=== PATIENT | female | born 1950 | race Hispanic/Latino ===

== ENCOUNTER → 2017-11-24 | Outpatient (CLI) | payer MEDICARE ==
[~2017-11-24] MED LIST: ALEN70TA47 PO; BUSP7.5T7 PO; CALC-21 PO; ESOM20CA39 PO; GLIP5TAB11 PO; LISI-617 PO; METF10004 PO
== END | disposition home or self-care (01) ==
LOC: SHCH 08:55
PROVIDERS: ATTEND Internal Medicine Cardiovascular Disease
DX: I42.9 Cardiomyopathy, unspecified (principal)
CPT/HCPCS: 93306

== ENCOUNTER 2018-06-25 15:53 | Emergency (ER) | payer MEDICARE ==
[~2018-06-25 15:53] MED LIST changes: +METF-446 PO; -METF10004 PO
[2018-06-25] MEDS ORDERED: ACETAMINOPHEN 325 MG TAB ONE (16:46)
== END 2018-06-25 16:55 | disposition home or self-care (01) ==
LOC: EDH 15:53
DX: S50.312A Abrasion of left elbow, initial encounter (principal); E11.9 Type 2 diabetes mellitus without complications; I10 Essential (primary) hypertension; M81.0 Age-related osteoporosis without current pathological fracture; Z98.890 Other specified postprocedural states; W10.1XXA Fall (on)(from) sidewalk curb, initial encounter; Y93.01 Activity, walking, marching and hiking; Y92.89 Other specified places as the place of occurrence of the external cause; Y99.8 Other external cause status
CPT/HCPCS: 73070

== ENCOUNTER 2018-10-24 22:11 | Emergency (ER) | payer MEDICARE ==
[~2018-10-24 22:11] MED LIST changes: +ALEN70TA10 PO; -ALEN70TA47 PO
[2018-10-24 22:44] LABS: BASOPHILS % (AUTO) 0.8 % (0.0-5.0); EOSINOPHILS % (AUTO) 5.3 % (0.0-8.0); HEMATOCRIT 37.2 % (36-48); LYMPHOCYTES % (AUTO) 43.7 % (21.0-51.0); MEAN CORPUSCULAR HEMOGLOBIN 32.6 pg (27.0-33.0); MEAN CORPUSCULAR HGB CONC 33.4 g/dL (32.0-36.0); MEAN CORPUSCULAR VOLUME 97.6 fL (79-99); MONOCYTES % (AUTO) 10.8 % (3.0-13.0); NEUTROPHILS % (AUTO) 39.4 % (40.0-77.0); NUCLEATED RED BLOOD CELLS 0.1 % (0.0-0.19); PLATELET COUNT (AUTO) 104 K/uL (130-400); RED BLOOD CELL COUNT(AUTO) 3.82 MIL/uL (4.00-5.50); WHITE BLOOD COUNT (AUTO) 6.3 K/uL (4.8-10.8)
[2018-10-24 22:52] LABS: POTASSIUM 4.2 mmol/L (3.5-5.1)
[2018-10-24] MEDS ORDERED: SODIUM CHLORIDE 0.9% 1000ML 1,000 ML IV ONE (22:54)
[2018-10-24 22:56] LABS: ALBUMIN 3.2 g/dL (3.5-5.0); BILIRUBIN,TOTAL 0.4 mg/dL (0.2-1.0); TOTAL PROTEIN, SERUM 7.5 g/dL (6.0-8.3)
[2018-10-24 23:06] LABS: INR 1.05 (0.85-1.15); PARTIAL THROMBOPLASTIN TIME 27.3 SEC (26.3-35.5)
== END 2018-10-25 01:57 | disposition home or self-care (01) ==
LOC: EDH 22:11
DX: E86.9 Volume depletion, unspecified (principal); E11.65 Type 2 diabetes mellitus with hyperglycemia; M81.0 Age-related osteoporosis without current pathological fracture; Z98.890 Other specified postprocedural states
CPT/HCPCS: 36415; 71045; 80053; 82550; 82948; 83605; 83690; 84484; 85025; 85610; 85730; 93005; 96360; 96361; 99284; J7030

== ENCOUNTER → 2018-12-18 | Outpatient (CLI) | payer MEDICARE | END | disposition home or self-care (01) | LOC: LAB 07:56 | PROVIDERS: ATTEND Family Medicine | DX: Z79.899 Other long term (current) drug therapy (principal) | CPT/HCPCS: 93005 ==

== ENCOUNTER 2019-04-06 14:08 | Emergency (ER) | payer MEDICARE | END 2019-04-06 17:03 | disposition home or self-care (01) | LOC: EDH 14:08 | DX: S01.111A Laceration without foreign body of right eyelid and periocular area, initial encounter (principal); E11.9 Type 2 diabetes mellitus without complications; I10 Essential (primary) hypertension; M81.0 Age-related osteoporosis without current pathological fracture; W18.39XA Other fall on same level, initial encounter; Y93.01 Activity, walking, marching and hiking; Y92.89 Other specified places as the place of occurrence of the external cause; Y99.8 Other external cause status | CPT/HCPCS: 12011; 70450; 72125 ==

== ENCOUNTER 2020-08-19 08:12 | Inpatient (IN) | payer OTHER, MEDICARE ==
[~2020-08-19] VITALS: Ht 157.5 cm; Wt 72.0 kg
[~2020-08-19 08:12] MED LIST changes: -ALEN70TA10 PO; +BUSP5TAB3 PO; -BUSP7.5T7 PO; -CALC-21 PO; +CHOL200026 PO; +CYAN250010 PO; -ESOM20CA39 PO; +ESOM40CA54 PO; +FLUT15.845 NS; +FOLI0.8C PO; +GLIM4TAB36 PO; -GLIP5TAB11 PO; +INSLAN SQ; +INSU100V SQ; -LISI-617 PO; +LISI5TAB21 PO; +LORA10TA7 PO; +METO-408 PO; +MONT-39 PO; +SERT25TA PO
[2020-08-19] MEDS ORDERED: MORPHINE 2 MG SYG ONE (08:21)
[2020-08-19 08:55] LABS: BASOPHILS % (AUTO) 0.6 % (0.0-5.0); EOSINOPHILS % (AUTO) 8.1 % (0.0-8.0); LYMPHOCYTES % (AUTO) 37.3 % (21.0-51.0); MEAN CORPUSCULAR HEMOGLOBIN 31.2 pg (27.0-33.0); MEAN CORPUSCULAR VOLUME 94.6 fL (79-99); MONOCYTES % (AUTO) 8.7 % (3.0-13.0); NEUTROPHILS % (AUTO) 44.7 % (40.0-77.0); PLATELET COUNT (AUTO) 86 K/uL (130-400); RED BLOOD CELL COUNT(AUTO) 3.17 MIL/uL (4.00-5.50); RED CELL DISTRIBUTION WIDTH 15.1 % (11.0-15.5); WHITE BLOOD COUNT (AUTO) 6.9 K/uL (4.8-10.8)
[2020-08-19 08:58] LABS: CREATININE 1.1 mg/dL (0.5-1.5); POTASSIUM 3.5 mmol/L (3.5-5.1)
[2020-08-19 09:02] LABS: INR 1.2 (0.85-1.15); PROTHROMBIN TIME 12.9 SEC (9.6-11.6)
[2020-08-19 09:03] LABS: PARTIAL THROMBOPLASTIN TIME 28.4 SEC (26.3-35.5)
[2020-08-19 09:05] LABS: ALBUMIN 2.8 g/dL (3.5-5.0); BILIRUBIN,TOTAL 0.6 mg/dL (0.2-1.0); TOTAL PROTEIN, SERUM 7.3 g/dL (6.0-8.3)
[2020-08-19 10:04] LABS: APPEARANCE,URINE Clear (CLEAR); BILIRUBIN,URINE Negative (NEGATIVE); COLOR,URINE Yellow (YELLOW); GLUCOSE, URINE (UA) Negative (NEGATIVE); KETONES,URINE Negative (NEGATIVE); LEUKOCYTE ESTERASE ,URINE Negative (NEGATIVE); NITRATE,URINE Negative (NEGATIVE); OCCULT BLOOD,URINE Moderate (NEGATIVE); PH,URINE 6.5 (5.0-8.0); PROTEIN,URINE POS 1+ mg/dL (NEGATIVE)
[2020-08-19 10:16] LABS: WBC,URINE 0-1 /HPF (0-1)
[2020-08-19 10:17] LABS: BACTERIA,URINE Rare /HPF (None Seen); SQUAMOUS EPITHELIAL CELL,UR None Seen /HPF (0-2)
[2020-08-19] MEDS ORDERED: GLUCAGON 1MG KIT 1 MG ML IM PRN (10:30)
[2020-08-19] MEDS ORDERED: ACETAMINOPHEN 325 MG TAB PO PRN (10:30)
[2020-08-19] MEDS ORDERED: LABETALOL 20MG VIAL IV PRN (10:30)
[2020-08-19] MEDS: ENOXAPARIN SODIUM 30 MG/0.3 ML SQ SCH ×2 (10:30→20:12)
[2020-08-19] MEDS ORDERED: ONDANSETRON 4MG INJ IVP PRN (10:30)
[2020-08-19] MEDS ORDERED: POTASSIUM CHLORIDE 20MEQ/100ML 100 ML IV PRN (10:30)
[2020-08-19] MEDS ORDERED: ACETAMINOPHEN 650 MG SUPPOSITORY RC PRN (10:30)
[2020-08-19] MEDS ORDERED: DEXTROSE 50%-WATER 50 ML DISP.SYRIN IV PRN (10:30)
[2020-08-19] MEDS: FAMOTIDINE 20MG VIAL IV SCH ×2 (10:30→20:12)
[2020-08-19] MEDS ORDERED: MAGNESIUM 2GM PREMIX 50ML 50 ML IV PRN (10:30)
[2020-08-19] MEDS ORDERED: LIDOCAINE HCL-MPF 1% 2ML VIAL IV PRN (10:30)
[2020-08-19] MEDS: 0.9%NACL 1000ML 1,000 ML IV SCH (10:30)
[2020-08-19 11:50] VITALS: BP 136/67
[2020-08-19] MEDS: INSULIN HUMULIN R 100 UNIT/ML 3ML SQ SCH ×2 (12:00→17:12)
[2020-08-19 16:00] VITALS: BP 127/55
[2020-08-19] MEDS: POTASSIUM CHLORIDE 20MEQ/100ML 100 ML IV PRN (17:03)
[2020-08-19] MEDS: LIDOCAINE HCL-MPF 1% 2ML VIAL IV PRN (17:03)
[2020-08-19 19:46] VITALS: BP 144/42
[2020-08-19] MEDS ORDERED: INSU100I24 SQ (19:54)
[2020-08-19] MEDS ORDERED: ALEN70TA80 PO (19:54)
[2020-08-19] MEDS ORDERED: INSU200I SQ (19:54)
[2020-08-19] MEDS ORDERED: ASPI-1197 PO (19:54)
[2020-08-19] MEDS ORDERED: PIOG15TA66 PO (19:54)
[2020-08-19] MEDS ORDERED: ROSU20TA31 PO (19:54)
[2020-08-19] MEDS: MORPHINE 2 MG SYG IVP PRN (20:13)
[2020-08-19 23:44] VITALS: BP 126/45
[2020-08-20] VITALS (24 sets, daily range): BP systolic 101–145; BP diastolic 36–62
[2020-08-20] MEDS: 0.9%NACL 1000ML 1,000 ML IV SCH ×2 (02:51→17:39)
[2020-08-20] MEDS: INSULIN HUMULIN R 100 UNIT/ML 3ML SQ SCH ×4 (06:00→17:39)
[2020-08-20 06:20] LABS: HEMATOCRIT 23.8 % (36-48); MEAN CORPUSCULAR HEMOGLOBIN 31.1 pg (27.0-33.0); MEAN CORPUSCULAR HGB CONC 32.8 g/dL (32.0-36.0); MEAN CORPUSCULAR VOLUME 94.8 fL (79-99); RED BLOOD CELL COUNT(AUTO) 2.51 MIL/uL (4.00-5.50); RED CELL DISTRIBUTION WIDTH 15.4 % (11.0-15.5)
[2020-08-20 06:37] LABS: MAGNESIUM 1.3 mg/dL (1.80-2.40); POTASSIUM 3.9 mmol/L (3.5-5.1)
[2020-08-20 06:41] LABS: HEMOGLOBIN A1C 7.2 % (4.0-6.0)
[2020-08-20] MEDS: FAMOTIDINE 20MG VIAL IV SCH ×2 (09:36→20:25)
[2020-08-20] MEDS ORDERED: PROPOFOL 10 MG/ML 20ML VIAL IV ONE (11:49)
[2020-08-20] MEDS ORDERED: ROPIVACAINE 0.5% 5MG/ML 30ML IJ ONE (11:50)
[2020-08-20] MEDS ORDERED: FENTANYL CITRATE PF 50 MCG/1 ML 2ML VIAL ONE ×2 (12:06→13:04)
[2020-08-20] MEDS: TRANEXAMIC ACID 1000MG/10ML ONE ×2 (12:25→13:25)
[2020-08-20] MEDS ORDERED: EPHEDRINE SULFATE 50 MG/ML AMPULE ONE (13:10)
[2020-08-20] MEDS ORDERED: GLYCOPYRROLATE 1 MG/5 ML SYRINGE ONE (13:13)
[2020-08-20] MEDS ORDERED: NEOSTIGMINE 5MG/5ML SYR IV ONE (13:13)
[2020-08-20] MEDS ORDERED: DEXAMETHASONE SOD PHOSPHATE 10MG/ML 1ML VIAL ONE (13:14)
[2020-08-20] MEDS ORDERED: LIDOCAINE 2%-EPI 1:200,000 20 ML VIAL IJ ONE (13:54)
[2020-08-20] MEDS ORDERED: CEFAZOLIN SODIUM 1 GM VIAL ONE (14:17)
[2020-08-20] MEDS ORDERED: IRON SUCROSE COMPLEX 400 MG in 0.9%NACL 50ML 50 ML IV SCH (14:30)
[2020-08-20] MEDS ORDERED: COMPOUND IV MISC 1 EACH IVSOLN MISC PRN (15:45)
[2020-08-20] MEDS ORDERED: EPOETIN ALFA 10,000 UNIT/ML VIAL SQ SCH (16:00)
[2020-08-21] VITALS (7 sets, daily range): BP systolic 115–131; BP diastolic 45–50
[2020-08-21] MEDS: MORPHINE 2 MG SYG IVP PRN (00:30)
[2020-08-21] MEDS: 0.9%NACL 1000ML 1,000 ML IV SCH ×3 (02:41→20:53)
[2020-08-21] MEDS ORDERED: INSULIN HUMULIN R 100 UNIT/ML 3ML ONE (05:50)
[2020-08-21] MEDS ORDERED: ASCORBIC ACID 500 MG TAB ONE (05:51)
[2020-08-21] MEDS: ASCORBIC ACID 500 MG TAB PO SCH (05:58)
[2020-08-21] MEDS: INSULIN HUMULIN R 100 UNIT/ML 3ML SQ SCH ×4 (06:00→20:55)
[2020-08-21 06:22] LABS: CREATININE 1.3 mg/dL (0.5-1.5); POTASSIUM 4.2 mmol/L (3.5-5.1)
[2020-08-21 07:09] LABS: MEAN CORPUSCULAR HEMOGLOBIN 31.3 pg (27.0-33.0); MEAN CORPUSCULAR HGB CONC 31.6 g/dL (32.0-36.0); MEAN CORPUSCULAR VOLUME 98.9 fL (79-99); PLATELET COUNT (AUTO) 89 K/uL (130-400); RED BLOOD CELL COUNT(AUTO) 1.76 MIL/uL (4.00-5.50); RED CELL DISTRIBUTION WIDTH 16.1 % (11.0-15.5); WHITE BLOOD COUNT (AUTO) 15.4 K/uL (4.8-10.8)
[2020-08-21 07:24] LABS: HEMATOCRIT 17.4 % (36-48)
[2020-08-21] MEDS: FERROUS SULFATE 325 MG TABLET.DR PO SCH ×3 (08:15→20:53)
[2020-08-21] MEDS: FAMOTIDINE 20MG VIAL IV SCH ×2 (08:15→20:53)
[2020-08-21] MEDS: METOPROLOL SUCCINATE 50 MG TAB.SR.24H PO SCH (08:16)
[2020-08-21] MEDS: EPOETIN ALFA-EPBX (NON-ESRD) 10,000 UNIT/ML VIAL IV SCH (11:55)
[2020-08-21 13:04] LABS: % IRON SATURATION 101.1 % (22-44)
[2020-08-21] MEDS ORDERED: LISINOPRIL 5 MG TABLET ONE (20:15)
[2020-08-21] MEDS: LISINOPRIL 5 MG TABLET PO SCH (20:53)
[2020-08-22 03:56] VITALS: BP 121/40
[2020-08-22] MEDS: INSULIN HUMULIN R 100 UNIT/ML 3ML SQ SCH ×4 (05:16→21:09)
[2020-08-22] MEDS: ASCORBIC ACID 500 MG TAB PO SCH (05:20)
[2020-08-22 07:35] VITALS: BP 125/47
[2020-08-22 07:53] LABS: MEAN CORPUSCULAR HEMOGLOBIN 31.8 pg (27.0-33.0); MEAN CORPUSCULAR HGB CONC 31.8 g/dL (32.0-36.0); NUCLEATED RED BLOOD CELLS 0.6 % (0.0-0.19); RED BLOOD CELL COUNT(AUTO) 1.57 MIL/uL (4.00-5.50); RED CELL DISTRIBUTION WIDTH 16.9 % (11.0-15.5); WHITE BLOOD COUNT (AUTO) 12.3 K/uL (4.8-10.8)
[2020-08-22 08:00] LABS: HEMATOCRIT 15.7 % (36-48)
[2020-08-22] MEDS: 0.9%NACL 1000ML 1,000 ML IV SCH ×2 (08:30→18:30)
[2020-08-22] MEDS: MULTIVITAMINS W-IRON 50 ML DROPS PO SCH (09:00)
[2020-08-22] MEDS: METOPROLOL SUCCINATE 50 MG TAB.SR.24H PO SCH (11:18)
[2020-08-22] MEDS: FOLIC ACID 1 MG TABLET PO SCH (11:18)
[2020-08-22] MEDS: CYANOCOBALAMIN (VITAMIN B-12) 1,000 MCG TABLET PO SCH (11:18)
[2020-08-22] MEDS: FAMOTIDINE 20MG VIAL IV SCH ×2 (11:19→21:07)
[2020-08-22] MEDS: EPOETIN ALFA-EPBX (NON-ESRD) 10,000 UNIT/ML VIAL IV SCH (11:20)
[2020-08-22] MEDS: FERROUS SULFATE 325 MG TABLET.DR PO SCH ×3 (11:21→21:07)
[2020-08-22 11:26] VITALS: BP 122/51
[2020-08-22 16:24] VITALS: BP 124/44
[2020-08-22] MEDS: MORPHINE 2 MG SYG IVP PRN (16:27)
[2020-08-22 20:00] VITALS: BP 116/41
[2020-08-22] MEDS: LISINOPRIL 5 MG TABLET PO SCH (21:07)
[2020-08-22] MEDS: INSULIN GLARGINE 100 UNITS/ML 10 ML VIAL SQ SCH (21:10)
[2020-08-22 23:39] VITALS: BP 118/72
[2020-08-23] MEDS: 0.9%NACL 1000ML 1,000 ML IV SCH ×2 (03:34→17:52)
[2020-08-23 04:00] VITALS: BP 119/63
[2020-08-23] MEDS: INSULIN HUMULIN R 100 UNIT/ML 3ML SQ SCH ×4 (05:28→20:59)
[2020-08-23] MEDS: ASCORBIC ACID 500 MG TAB PO SCH ×2 (05:28→19:08)
[2020-08-23 05:41] LABS: MEAN CORPUSCULAR HEMOGLOBIN 31.6 pg (27.0-33.0); MEAN CORPUSCULAR HGB CONC 32.4 g/dL (32.0-36.0); MEAN CORPUSCULAR VOLUME 97.7 fL (79-99); NUCLEATED RED BLOOD CELLS 3.2 % (0.0-0.19); RED BLOOD CELL COUNT(AUTO) 1.77 MIL/uL (4.00-5.50); WHITE BLOOD COUNT (AUTO) 11.6 K/uL (4.8-10.8)
[2020-08-23 05:54] LABS: CREATININE 0.9 mg/dL (0.5-1.5); POTASSIUM 3.5 mmol/L (3.5-5.1)
[2020-08-23 06:06] LABS: HEMATOCRIT 17.3 % (36-48)
[2020-08-23 08:00] VITALS: BP 128/46
[2020-08-23] MEDS: EPOETIN ALFA-EPBX (NON-ESRD) 10,000 UNIT/ML VIAL IV SCH (08:42)
[2020-08-23] MEDS: FOLIC ACID 1 MG TABLET PO SCH (08:48)
[2020-08-23] MEDS: FERROUS SULFATE 325 MG TABLET.DR PO SCH ×3 (08:48→21:00)
[2020-08-23] MEDS: METOPROLOL SUCCINATE 50 MG TAB.SR.24H PO SCH (08:48)
[2020-08-23] MEDS: CYANOCOBALAMIN (VITAMIN B-12) 1,000 MCG TABLET PO SCH (08:48)
[2020-08-23] MEDS: FAMOTIDINE 20MG VIAL IV SCH ×2 (08:48→21:00)
[2020-08-23] MEDS: MULTIVITAMINS W-IRON 50 ML DROPS PO SCH (08:56)
[2020-08-23 09:13] LABS: HEPATITIS A ANTIBODY IGM Negative (Negative); HEPATITIS B CORE IGM Negative (Negative); HEPATITIS Bs ANTIGEN SCREEN P Negative (Negative)
[2020-08-23] MEDS ORDERED: LACTULOSE 20 GM/30 ML UDCUP ONE (11:02)
[2020-08-23 11:53] VITALS: BP 134/62
[2020-08-23 16:00] VITALS: BP 135/53
[2020-08-23 20:43] VITALS: BP 116/58
[2020-08-23] MEDS: INSULIN GLARGINE 100 UNITS/ML 10 ML VIAL SQ SCH (20:59)
[2020-08-23] MEDS: LACTULOSE 20 GM/30 ML UDCUP PO SCH (21:00)
[2020-08-23] MEDS: LISINOPRIL 5 MG TABLET PO SCH (21:00)
[2020-08-24 00:26] VITALS: BP 126/53
[2020-08-24] MEDS: 0.9%NACL 1000ML 1,000 ML IV SCH ×3 (00:30→21:12)
[2020-08-24 04:17] VITALS: BP 134/49
[2020-08-24] MEDS: INSULIN HUMULIN R 100 UNIT/ML 3ML SQ SCH ×4 (05:42→20:33)
[2020-08-24 08:00] VITALS: BP 135/56
[2020-08-24 08:24] LABS: MEAN CORPUSCULAR HEMOGLOBIN 32.6 pg (27.0-33.0); MEAN CORPUSCULAR HGB CONC 32.8 g/dL (32.0-36.0); MEAN CORPUSCULAR VOLUME 99.5 fL (79-99); NUCLEATED RED BLOOD CELLS 9.5 % (0.0-0.19); PLATELET COUNT (AUTO) 120 K/uL (130-400); RED BLOOD CELL COUNT(AUTO) 1.93 MIL/uL (4.00-5.50); WHITE BLOOD COUNT (AUTO) 11.4 K/uL (4.8-10.8)
[2020-08-24] MEDS: LACTULOSE 20 GM/30 ML UDCUP PO SCH ×2 (08:29→20:56)
[2020-08-24] MEDS: FOLIC ACID 1 MG TABLET PO SCH (08:30)
[2020-08-24] MEDS: METOPROLOL SUCCINATE 50 MG TAB.SR.24H PO SCH (08:30)
[2020-08-24] MEDS: FERROUS SULFATE 325 MG TABLET.DR PO SCH ×3 (08:30→20:57)
[2020-08-24] MEDS: FAMOTIDINE 20MG VIAL IV SCH ×2 (08:30→20:56)
[2020-08-24] MEDS: CYANOCOBALAMIN (VITAMIN B-12) 1,000 MCG TABLET PO SCH (08:30)
[2020-08-24] MEDS: EPOETIN ALFA-EPBX (NON-ESRD) 10,000 UNIT/ML VIAL IV SCH (08:33)
[2020-08-24] MEDS: MULTIVITAMINS W-IRON 50 ML DROPS PO SCH (08:35)
[2020-08-24 08:39] LABS: CREATININE 0.9 mg/dL (0.5-1.5); POTASSIUM 3.1 mmol/L (3.5-5.1)
[2020-08-24 08:55] LABS: HEMATOCRIT 19.2 % (36-48)
[2020-08-24 09:40] LABS: BAND NEUTROPHILS % (MANUAL) 1 % (0-2); EOSINOPHILS % (MANUAL) 5 % (1-6); LYMPHOCYTES % (MANUAL) 14 % (22-44); MAN.DIFF COMMENT-IMPRESSION MANUAL DIFFERENTIAL; MONOCYTES % (MANUAL) 7 % (2-9); SEGMENTED NEUTROPHILS % 73 % (40-70)
[2020-08-24 09:42] LABS: PLATELET MORPHOLOGY COMMENT SLIGHTLY DECREASED
[2020-08-24 12:00] VITALS: BP 146/71
[2020-08-24] MEDS: IRON SUCROSE COMPLEX 100 MG in 0.9%NACL 50ML 50 ML IV SCH (15:15)
[2020-08-24 16:00] VITALS: BP 129/67
[2020-08-24] MEDS: ASCORBIC ACID 500 MG TAB PO SCH (18:36)
[2020-08-24 20:52] VITALS: BP 127/46
[2020-08-24] MEDS: INSULIN GLARGINE 100 UNITS/ML 10 ML VIAL SQ SCH (20:54)
[2020-08-24] MEDS: LISINOPRIL 5 MG TABLET PO SCH (20:57)
[2020-08-24] MEDS: POTASSIUM CHLORIDE 10% ELIXIR 20 MEQ/15 ML UDCUP PO PRN ×2 (21:02→23:09)
[2020-08-24 23:30] LABS: APPEARANCE,URINE Cloudy (CLEAR); BILIRUBIN,URINE Negative (NEGATIVE); COLOR,URINE Yellow (YELLOW); GLUCOSE, URINE (UA) Negative (NEGATIVE); KETONES,URINE Negative (NEGATIVE); LEUKOCYTE ESTERASE ,URINE Large (NEGATIVE); NITRATE,URINE Positive (NEGATIVE); OCCULT BLOOD,URINE Moderate (NEGATIVE); PH,URINE 7.5 (5.0-8.0); PROTEIN,URINE Trace mg/dL (NEGATIVE); UROBILINOGEN,URINE 0.2 mg/dL (0.2-1.0)
[2020-08-24 23:54] LABS: BACTERIA,URINE Moderate /HPF (None Seen); MUCUS,URINE Moderate LPF (None Seen); SQUAMOUS EPITHELIAL CELL,UR Few /HPF (0-2); WBC,URINE 51-100 /HPF (0-1)
[2020-08-25] VITALS (7 sets, daily range): BP systolic 101–129; BP diastolic 38–65
[2020-08-25] MEDS: POTASSIUM CHLORIDE 10% ELIXIR 20 MEQ/15 ML UDCUP PO PRN ×5 (00:19→17:30)
[2020-08-25 04:56] LABS: BASOPHILS % (AUTO) 0.6 % (0.0-5.0); EOSINOPHILS % (AUTO) 5.9 % (0.0-8.0); LYMPHOCYTES % (AUTO) 21.2 % (21.0-51.0); MEAN CORPUSCULAR HEMOGLOBIN 32.6 pg (27.0-33.0); MEAN CORPUSCULAR HGB CONC 32.2 g/dL (32.0-36.0); MEAN CORPUSCULAR VOLUME 101.1 fL (79-99); NEUTROPHILS % (AUTO) 55.1 % (40.0-77.0); NUCLEATED RED BLOOD CELLS 19.1 % (0.0-0.19); PLATELET COUNT (AUTO) 130 K/uL (130-400); RED BLOOD CELL COUNT(AUTO) 1.75 MIL/uL (4.00-5.50); RED CELL DISTRIBUTION WIDTH 20.2 % (11.0-15.5)
[2020-08-25 05:02] LABS: HEMATOCRIT 17.7 % (36-48)
[2020-08-25 05:15] LABS: CREATININE 0.9 mg/dL (0.5-1.5); POTASSIUM 3.3 mmol/L (3.5-5.1)
[2020-08-25] MEDS: INSULIN HUMULIN R 100 UNIT/ML 3ML SQ SCH ×4 (05:50→20:24)
[2020-08-25] MEDS: 0.9%NACL 1000ML 1,000 ML IV SCH ×2 (06:30→16:34)
[2020-08-25] MEDS: IRON SUCROSE COMPLEX 100 MG in 0.9%NACL 50ML 50 ML IV SCH (09:00)
[2020-08-25] MEDS: MULTIVITAMINS W-IRON 50 ML DROPS PO SCH (09:00)
[2020-08-25] MEDS: LACTULOSE 20 GM/30 ML UDCUP PO SCH ×2 (09:00→21:10)
[2020-08-25] MEDS: FERROUS SULFATE 325 MG TABLET.DR PO SCH ×3 (09:52→21:11)
[2020-08-25] MEDS: FOLIC ACID 1 MG TABLET PO SCH (09:52)
[2020-08-25] MEDS: FAMOTIDINE 20MG VIAL IV SCH ×2 (09:52→21:10)
[2020-08-25] MEDS: CYANOCOBALAMIN (VITAMIN B-12) 1,000 MCG TABLET PO SCH (09:52)
[2020-08-25] MEDS: METOPROLOL SUCCINATE 50 MG TAB.SR.24H PO SCH (09:52)
[2020-08-25] MEDS: EPOETIN ALFA-EPBX (NON-ESRD) 10,000 UNIT/ML VIAL IV SCH (11:19)
[2020-08-25] MEDS: LISINOPRIL 5 MG TABLET PO SCH (21:11)
[2020-08-25] MEDS: INSULIN GLARGINE 100 UNITS/ML 10 ML VIAL SQ SCH (21:18)
[2020-08-26] MEDS: 0.9%NACL 1000ML 1,000 ML IV SCH ×3 (03:35→21:08)
[2020-08-26 05:20] VITALS: BP 143/61
[2020-08-26] MEDS: INSULIN HUMULIN R 100 UNIT/ML 3ML SQ SCH ×4 (05:54→21:06)
[2020-08-26] MEDS: ASCORBIC ACID 500 MG TAB PO SCH (06:01)
[2020-08-26 07:50] VITALS: BP 128/46
[2020-08-26] MEDS: MULTIVITAMINS W-IRON 50 ML DROPS PO SCH (09:00)
[2020-08-26] MEDS: FERROUS SULFATE 325 MG TABLET.DR PO SCH ×3 (09:58→20:55)
[2020-08-26] MEDS: METOPROLOL SUCCINATE 50 MG TAB.SR.24H PO SCH (09:59)
[2020-08-26] MEDS: LACTULOSE 20 GM/30 ML UDCUP PO SCH ×2 (09:59→20:55)
[2020-08-26] MEDS: CYANOCOBALAMIN (VITAMIN B-12) 1,000 MCG TABLET PO SCH (09:59)
[2020-08-26] MEDS: FOLIC ACID 1 MG TABLET PO SCH (09:59)
[2020-08-26] MEDS: FAMOTIDINE 20MG VIAL IV SCH ×2 (09:59→20:55)
[2020-08-26] MEDS: EPOETIN ALFA-EPBX (NON-ESRD) 10,000 UNIT/ML VIAL IV SCH (09:59)
[2020-08-26 11:10] VITALS: BP 110/42
[2020-08-26 20:03] VITALS: BP 118/45
[2020-08-26] MEDS: LISINOPRIL 5 MG TABLET PO SCH (20:56)
[2020-08-26] MEDS: INSULIN GLARGINE 100 UNITS/ML 10 ML VIAL SQ SCH (21:07)
[2020-08-27] VITALS (7 sets, daily range): BP systolic 94–146; BP diastolic 38–69
[2020-08-27] MEDS: INSULIN HUMULIN R 100 UNIT/ML 3ML SQ SCH ×4 (05:49→22:07)
[2020-08-27] MEDS: ASCORBIC ACID 500 MG TAB PO SCH (05:59)
[2020-08-27] MEDS: LACTULOSE 20 GM/30 ML UDCUP PO SCH (09:00)
[2020-08-27] MEDS: FERROUS SULFATE 325 MG TABLET.DR PO SCH ×3 (09:15→22:02)
[2020-08-27] MEDS: FOLIC ACID 1 MG TABLET PO SCH (09:15)
[2020-08-27] MEDS: CYANOCOBALAMIN (VITAMIN B-12) 1,000 MCG TABLET PO SCH (09:15)
[2020-08-27] MEDS: FAMOTIDINE 20MG VIAL IV SCH (09:15)
[2020-08-27] MEDS: METOPROLOL SUCCINATE 50 MG TAB.SR.24H PO SCH (09:16)
[2020-08-27] MEDS: 0.9%NACL 1000ML 1,000 ML IV SCH (09:21)
[2020-08-27] MEDS ORDERED: LACTULOSE 20 GM/30 ML UDCUP PO PRN (17:30)
[2020-08-27] MEDS: LISINOPRIL 5 MG TABLET PO SCH (22:02)
[2020-08-27] MEDS: INSULIN GLARGINE 100 UNITS/ML 10 ML VIAL SQ SCH (22:09)
[2020-08-28 02:57] VITALS: BP 127/48
[2020-08-28 05:47] LABS: HEMATOCRIT 21.1 % (36-48); MEAN CORPUSCULAR HEMOGLOBIN 33.5 pg (27.0-33.0); MEAN CORPUSCULAR HGB CONC 31.3 g/dL (32.0-36.0); MEAN CORPUSCULAR VOLUME 107.1 fL (79-99); NUCLEATED RED BLOOD CELLS 1.4 % (0.0-0.19); PLATELET COUNT (AUTO) 131 K/uL (130-400); RED BLOOD CELL COUNT(AUTO) 1.97 MIL/uL (4.00-5.50); WHITE BLOOD COUNT (AUTO) 8.4 K/uL (4.8-10.8)
[2020-08-28] MEDS: ASCORBIC ACID 500 MG TAB PO SCH ×2 (05:51→19:40)
[2020-08-28 05:55] VITALS: BP 124/60
[2020-08-28 06:08] LABS: CREATININE 0.8 mg/dL (0.5-1.5)
[2020-08-28] MEDS: INSULIN HUMULIN R 100 UNIT/ML 3ML SQ SCH ×4 (06:28→20:11)
[2020-08-28 08:03] VITALS: BP 125/50
[2020-08-28] MEDS ORDERED: PANTOPRAZOLE 40 MG TAB DR PO SCH (09:00)
[2020-08-28] MEDS: CYANOCOBALAMIN (VITAMIN B-12) 1,000 MCG TABLET PO SCH (09:22)
[2020-08-28] MEDS: LIDOCAINE HCL-MPF 1% 2ML VIAL IV PRN (09:22)
[2020-08-28] MEDS: FERROUS SULFATE 325 MG TABLET.DR PO SCH ×3 (09:23→20:15)
[2020-08-28] MEDS: KCL 20 MEQ ERTAB PO PRN ×4 (09:23→16:17)
[2020-08-28] MEDS: METOPROLOL SUCCINATE 50 MG TAB.SR.24H PO SCH (09:23)
[2020-08-28] MEDS: FOLIC ACID 1 MG TABLET PO SCH (09:23)
[2020-08-28] MEDS: POTASSIUM CHLORIDE 20MEQ/100ML 100 ML IV PRN (09:24)
[2020-08-28 09:36] LABS: APPEARANCE,URINE CLOUDY (CLEAR); BILIRUBIN,URINE SMALL (NEGATIVE); COLOR,URINE YELLOW (YELLOW); GLUCOSE, URINE (UA) NEGATIVE (NEGATIVE); KETONES,URINE NEGATIVE (NEGATIVE); LEUKOCYTE ESTERASE ,URINE LARGE (NEGATIVE); NITRATE,URINE NEGATIVE (NEGATIVE); OCCULT BLOOD,URINE LARGE (NEGATIVE); PROTEIN,URINE TRACE mg/dL (NEGATIVE); UROBILINOGEN,URINE 0.2 mg/dL (0.2-1.0)
[2020-08-28 09:50] LABS: BACTERIA,URINE Many /HPF (None Seen)
[2020-08-28 09:51] LABS: WBC,URINE 26-50 /HPF (0-1)
[2020-08-28] MEDS ORDERED: VITA1CAP85 PO (13:20)
[2020-08-28] MEDS ORDERED: FERS325 PO (13:20)
[2020-08-28] MEDS ORDERED: FOLI1 PO (13:21)
[2020-08-28] MEDS ORDERED: SULF1TAB42 PO (14:33)
[2020-08-28 16:28] VITALS: BP 120/54
[2020-08-28 20:00] VITALS: BP 117/67
[2020-08-28] MEDS: INSULIN GLARGINE 100 UNITS/ML 10 ML VIAL SQ SCH (20:13)
[2020-08-28] MEDS: LISINOPRIL 5 MG TABLET PO SCH (20:16)
== END 2020-08-29 | disposition home or self-care (01) | DRG 481 ==
LOC: EDH 08:12 → EDHIP 10:24 → 3DH 11:50
PROVIDERS: ADMIT Internal Medicine Critical Care Medicine; ATTEND Internal Medicine Critical Care Medicine
PROC: 0QS706Z Reposition Left Upper Femur with Intramedullary Internal Fixation Device, Open Approach (ICD-10-PCS; principal; 2020-08-20 11:55)
DX: S72.142A Displaced intertrochanteric fracture of left femur, initial encounter for closed fracture (principal); I42.0 Dilated cardiomyopathy; D62 Acute posthemorrhagic anemia; F84.0 Autistic disorder; N39.0 Urinary tract infection, site not specified; F79 Unspecified intellectual disabilities; D69.6 Thrombocytopenia, unspecified; E83.42 Hypomagnesemia; R79.89 Other specified abnormal findings of blood chemistry; E11.22 Type 2 diabetes mellitus with diabetic chronic kidney disease; N18.9 Chronic kidney disease, unspecified; Z20.822 Contact with and (suspected) exposure to COVID-19; M81.0 Age-related osteoporosis without current pathological fracture; Z79.899 Other long term (current) drug therapy; R74.01 Elevation of levels of liver transaminase levels; Z79.82 Long term (current) use of aspirin; F41.9 Anxiety disorder, unspecified; I12.9 Hypertensive chronic kidney disease with stage 1 through stage 4 chronic kidney disease, or unspecified chronic kidney disease; W01.0XXA Fall on same level from slipping, tripping and stumbling without subsequent striking against object, initial encounter; Y92.009 Unspecified place in unspecified non-institutional (private) residence as the place of occurrence of the external cause; Z79.84 Long term (current) use of oral hypoglycemic drugs; Z98.42 Cataract extraction status, left eye; Z98.41 Cataract extraction status, right eye; Z80.8 Family history of malignant neoplasm of other organs or systems; Z82.0 Family history of epilepsy and other diseases of the nervous system; Y93.89 Activity, other specified; Y99.8 Other external cause status
CPT/HCPCS: 36415; 70450; 71045; 73502; 73503; 76705; 80048; 80053; 80074; 81001; 82270; 82948; 83036; 83540; 83550; 83605; 83735; 84075; 85025; 85027; 85610; 85730; 86701; 86880; 87077; 87088; 87186; 87390; 87426; 93005; 97039; G0378; J0690; J0885; J1100; J1650; J1756; J1815; J2405; J2704; J2710; J2795; J3010; J3475; J3480; J3490; J7030; U0003

== ENCOUNTER 2021-06-16 19:32 | Inpatient (IN) | payer MEDICARE ==
[~2021-06-16] VITALS: Ht 154.9 cm; Wt 60.9 kg
[~2021-06-16 19:32] MED LIST changes: +ALEN70TA80 PO; -CYAN250010 PO; +FERS325 PO; -FOLI0.8C PO; +FOLI1 PO; -GLIM4TAB36 PO; -INSLAN SQ; +INSU100I24 SQ; -INSU100V SQ; +INSU200I SQ; -LORA10TA7 PO; -MONT-39 PO; +PIOG15TA66 PO; +ROSU20TA31 PO; +SULF1TAB42 PO; +VITA1CAP85 PO
[2021-06-16 20:36] LABS: BASOPHILS % (AUTO) 0.4 % (0.0-5.0); EOSINOPHILS % (AUTO) 1.9 % (0.0-8.0); HEMATOCRIT 27.3 % (36-48); LYMPHOCYTES % (AUTO) 13.1 % (21.0-51.0); MEAN CORPUSCULAR HEMOGLOBIN 31.6 pg (27.0-33.0); MEAN CORPUSCULAR HGB CONC 33.7 g/dL (32.0-36.0); MEAN CORPUSCULAR VOLUME 93.8 fL (79-99); MONOCYTES % (AUTO) 7.3 % (3.0-13.0); NEUTROPHILS % (AUTO) 76.9 % (40.0-77.0); PLATELET COUNT (AUTO) 126 K/uL (130-400); RED BLOOD CELL COUNT(AUTO) 2.91 MIL/uL (4.00-5.50); RED CELL DISTRIBUTION WIDTH 14.3 % (11.0-15.5); WHITE BLOOD COUNT (AUTO) 10.4 K/uL (4.8-10.8)
[2021-06-16 20:45] LABS: CREATININE 2.2 mg/dL (0.5-1.5); POTASSIUM 4.6 mmol/L (3.5-5.1)
[2021-06-16 21:48] LABS: APPEARANCE,URINE Turbid (CLEAR); BILIRUBIN,URINE Negative (NEGATIVE); COLOR,URINE Yellow (YELLOW); GLUCOSE, URINE (UA) Negative (NEGATIVE); KETONES,URINE Negative (NEGATIVE); LEUKOCYTE ESTERASE ,URINE Large (NEGATIVE); NITRATE,URINE Negative (NEGATIVE); OCCULT BLOOD,URINE Large (NEGATIVE); PH,URINE 5.5 (5.0-8.0); PROTEIN,URINE 300 mg/dL (NEGATIVE); UROBILINOGEN,URINE 0.2 mg/dL (0.2-1.0)
[2021-06-16] MEDS ORDERED: 0.9%NACL 1000ML 1,000 ML IV ONE (22:00)
[2021-06-16 22:01] LABS: BACTERIA,URINE Moderate /HPF (None Seen); MUCUS,URINE Few LPF (None Seen); SQUAMOUS EPITHELIAL CELL,UR Rare /HPF (0-2)
[2021-06-16 22:08] LABS: ALBUMIN 1.9 g/dL (3.5-5.0); BILIRUBIN,DIRECT 0.4 mg/dL (0.0-0.3); BILIRUBIN,TOTAL 0.8 mg/dL (0.2-1.0); TOTAL PROTEIN, SERUM 6.6 g/dL (6.0-8.3)
[2021-06-16] MEDS ORDERED: LACTATED RINGERS 1000ML 1,365 ML IV ONE (23:30)
[2021-06-16] MEDS ORDERED: CEFTRIAXONE 1G VIAL IV SCH (23:30)
[2021-06-16] MEDS ORDERED: ONDANSETRON 4MG INJ IV PRN (23:30)
[2021-06-17] VITALS (20 sets, daily range): BP systolic 84–134; BP diastolic 31–71
[2021-06-17] MEDS: LACTATED RINGERS 1000ML 1,000 ML IV SCH ×3 (01:52→20:30)
[2021-06-17] MEDS ORDERED: INSLAN SQ (03:44)
[2021-06-17] MEDS ORDERED: CYANOCOBALAMIN PO (03:44)
[2021-06-17] MEDS ORDERED: METF-444 PO (03:44)
[2021-06-17] MEDS ORDERED: ONDA-104 PO (03:44)
[2021-06-17] MEDS ORDERED: LEVO5TAB13 PO (03:44)
[2021-06-17] MEDS ORDERED: ATOR40TA71 PO (03:44)
[2021-06-17] MEDS ORDERED: PANT40TA PO (03:44)
[2021-06-17] MEDS ORDERED: FOLI1TAB48 PO (03:44)
[2021-06-17] MEDS ORDERED: FERR-72 PO (03:44)
[2021-06-17] MEDS ORDERED: DICY10 PO (03:44)
[2021-06-17] MEDS ORDERED: BUSP10TA3 PO (03:44)
[2021-06-17] MEDS ORDERED: LACT10SO32 PO (03:44)
[2021-06-17] MEDS ORDERED: INSU100I3 SQ (03:44)
[2021-06-17 04:10] LABS: BASOPHILS % (AUTO) 0.6 % (0.0-5.0); EOSINOPHILS % (AUTO) 1.6 % (0.0-8.0); HEMATOCRIT 22.9 % (36-48); LYMPHOCYTES % (AUTO) 11.1 % (21.0-51.0); MEAN CORPUSCULAR HEMOGLOBIN 32.1 pg (27.0-33.0); MEAN CORPUSCULAR HGB CONC 33.2 g/dL (32.0-36.0); MEAN CORPUSCULAR VOLUME 96.6 fL (79-99); MONOCYTES % (AUTO) 5.8 % (3.0-13.0); NEUTROPHILS % (AUTO) 80.5 % (40.0-77.0); PLATELET COUNT (AUTO) 98 K/uL (130-400); RED BLOOD CELL COUNT(AUTO) 2.37 MIL/uL (4.00-5.50); RED CELL DISTRIBUTION WIDTH 14.5 % (11.0-15.5); WHITE BLOOD COUNT (AUTO) 9.6 K/uL (4.8-10.8)
[2021-06-17 04:27] LABS: HEMOGLOBIN A1C 6.3 % (4.0-6.0)
[2021-06-17 04:44] LABS: POTASSIUM 3.5 mmol/L (3.5-5.1)
[2021-06-17 04:45] LABS: CREATININE 0.8 mg/dL (0.5-1.5); MAGNESIUM 1.9 mg/dL (1.80-2.40); PHOSPHORUS 3.7 mg/dL (2.5-4.9)
[2021-06-17] MEDS ORDERED: LACTATED RINGERS 1000ML 500 ML IV ONE (08:00)
[2021-06-17] MEDS: ZOSYN 3.375GM +NS 50ML IV SCH ×2 (08:51→16:13)
[2021-06-17] MEDS ORDERED: FAMOTIDINE 20MG VIAL IV SCH (09:00)
[2021-06-17] MEDS ORDERED: HEPARIN 5,000 UNIT VIAL SQ SCH (09:00)
[2021-06-17] MEDS: NOREPINEPHRIN 4MG/NS 250ML 250 ML IV SCH ×2 (11:29→20:32)
[2021-06-17] MEDS ORDERED: 0.9%NACL 50ML 50 ML IV ONE ×2 (16:02→23:28)
[2021-06-18] VITALS (16 sets, daily range): BP systolic 94–144; BP diastolic 37–89
[2021-06-18] MEDS: ZOSYN 3.375GM +NS 50ML IV SCH ×3 (00:02→16:06)
[2021-06-18 07:53] LABS: HEMATOCRIT 23.2 % (36-48); MEAN CORPUSCULAR HEMOGLOBIN 31.6 pg (27.0-33.0); MEAN CORPUSCULAR HGB CONC 33.2 g/dL (32.0-36.0); MEAN CORPUSCULAR VOLUME 95.1 fL (79-99); RED BLOOD CELL COUNT(AUTO) 2.44 MIL/uL (4.00-5.50); RED CELL DISTRIBUTION WIDTH 14.4 % (11.0-15.5); WHITE BLOOD COUNT (AUTO) 8.4 K/uL (4.8-10.8)
[2021-06-18] MEDS: LACTATED RINGERS 1000ML 1,000 ML IV SCH ×3 (07:56→18:02)
[2021-06-18] MEDS: NOREPINEPHRIN 4MG/NS 250ML 250 ML IV SCH (07:57)
[2021-06-18 08:17] LABS: CREATININE 1.8 mg/dL (0.5-1.5); POTASSIUM 3.9 mmol/L (3.5-5.1)
[2021-06-18 08:38] LABS: RETICULOCYTE % (AUTO) 2.6 % (0.42-2.23)
[2021-06-18] MEDS: PANTOPRAZOLE 40 MG TAB DR PO SCH (08:42)
[2021-06-18] MEDS: MIDODRINE HCL 5 MG TABLET PO SCH ×3 (08:45→20:55)
[2021-06-18 08:59] LABS: % IRON SATURATION 33.6 % (22-44)
[2021-06-18] MEDS ORDERED: PANTOPRAZOLE 40 MG/VIAL IVP SCH (09:00)
[2021-06-18] MEDS ORDERED: MIDODRINE HCL 5 MG TABLET PO SCH (09:00)
[2021-06-19] VITALS (15 sets, daily range): BP systolic 83–131; BP diastolic 30–50
[2021-06-19] MEDS ORDERED: 0.9%NACL 50ML 50 ML IV ONE (00:36)
[2021-06-19] MEDS: ZOSYN 3.375GM +NS 50ML IV SCH (00:44)
[2021-06-19 03:44] LABS: HEMATOCRIT 21.7 % (36-48); MEAN CORPUSCULAR HEMOGLOBIN 31.6 pg (27.0-33.0); MEAN CORPUSCULAR HGB CONC 33.6 g/dL (32.0-36.0); MEAN CORPUSCULAR VOLUME 93.9 fL (79-99); RED BLOOD CELL COUNT(AUTO) 2.31 MIL/uL (4.00-5.50); RED CELL DISTRIBUTION WIDTH 14.4 % (11.0-15.5); WHITE BLOOD COUNT (AUTO) 7.1 K/uL (4.8-10.8)
[2021-06-19 03:51] LABS: POTASSIUM 3.5 mmol/L (3.5-5.1)
[2021-06-19] MEDS: LACTATED RINGERS 1000ML 1,000 ML IV SCH ×3 (04:32→20:19)
[2021-06-19] MEDS: CEFTRIAXONE 1G VIAL IVP SCH (08:29)
[2021-06-19] MEDS: PANTOPRAZOLE 40 MG TAB DR PO SCH (08:30)
[2021-06-19] MEDS ORDERED: POTASSIUM CHLORIDE 10MEQ/100ML 10 MEQ/100 ML ML IV SCH (08:30)
[2021-06-19] MEDS: MIDODRINE HCL 5 MG TABLET PO SCH ×3 (08:30→20:19)
[2021-06-19] MEDS ORDERED: POTASSIUM CHLORIDE 10MEQ SR TAB PO SCH (08:30)
[2021-06-19] MEDS ORDERED: 0.9% NACL 500ML IV.SOLN 500 ML IV ONE (11:48)
[2021-06-19] MEDS ORDERED: 0.9% NACL 500ML IV.SOLN 500 ML IV SCH (12:00)
[2021-06-19] MEDS: NOREPINEPHRIN 4MG/NS 250ML 250 ML IV SCH (12:15)
[2021-06-19 12:56] LABS: APPEARANCE,URINE TURBID (CLEAR); BILIRUBIN,URINE SMALL (NEGATIVE); COLOR,URINE AMBER (YELLOW); GLUCOSE, URINE (UA) NEGATIVE (NEGATIVE); KETONES,URINE 5 mg/dL (NEGATIVE); LEUKOCYTE ESTERASE ,URINE SMALL (NEGATIVE); NITRATE,URINE NEGATIVE (NEGATIVE); OCCULT BLOOD,URINE LARGE (NEGATIVE); PH,URINE 5.5 (5.0-8.0); PROTEIN,URINE 100 mg/dL (NEGATIVE); UROBILINOGEN,URINE 0.2 mg/dL (0.2-1.0)
[2021-06-19 12:59] LABS: BACTERIA,URINE Moderate /HPF (None Seen); RBC,URINE >100 /HPF (0-1); SQUAMOUS EPITHELIAL CELL,UR Rare /HPF (0-2); WBC,URINE 26-50 /HPF (0-1)
[2021-06-19 13:00] LABS: AMORPHOUS SEDIMENT,UR Moderate /LPF (None Seen); MUCUS,URINE Few LPF (None Seen)
[2021-06-20] VITALS (24 sets, daily range): BP systolic 82–158; BP diastolic 32–73
[2021-06-20 04:24] LABS: BASOPHILS % (AUTO) 0.8 % (0.0-5.0); HEMATOCRIT 23.2 % (36-48); LYMPHOCYTES % (AUTO) 32.8 % (21.0-51.0); MEAN CORPUSCULAR HGB CONC 32.8 g/dL (32.0-36.0); MEAN CORPUSCULAR VOLUME 94.7 fL (79-99); MONOCYTES % (AUTO) 12.6 % (3.0-13.0); NEUTROPHILS % (AUTO) 45.3 % (40.0-77.0); PLATELET COUNT (AUTO) 127 K/uL (130-400); RED BLOOD CELL COUNT(AUTO) 2.45 MIL/uL (4.00-5.50); RED CELL DISTRIBUTION WIDTH 14.5 % (11.0-15.5); WHITE BLOOD COUNT (AUTO) 7.8 K/uL (4.8-10.8)
[2021-06-20 04:36] LABS: CREATININE 2.4 mg/dL (0.5-1.5); MAGNESIUM 1.4 mg/dL (1.80-2.40); POTASSIUM 3.2 mmol/L (3.5-5.1)
[2021-06-20] MEDS ORDERED: POTASSIUM CHLORIDE 10% ELIXIR 20 MEQ/15 ML UDCUP PO SCH (07:30)
[2021-06-20] MEDS ORDERED: MAGNESIUM 2GM PREMIX 50ML 50 ML IV PRN (07:30)
[2021-06-20] MEDS: PANTOPRAZOLE 40 MG TAB DR PO SCH (08:54)
[2021-06-20] MEDS: MIDODRINE HCL 5 MG TABLET PO SCH ×3 (08:54→20:52)
[2021-06-20] MEDS: VASOPRESSIN 40 UNITS in 0.9%NACL 50ML 40 ML IV SCH ×2 (08:59→17:03)
[2021-06-20] MEDS: FUROSEMIDE 40MG VIAL IV SCH ×2 (09:01→20:52)
[2021-06-20] MEDS: CEFTRIAXONE 1G VIAL IVP SCH (09:01)
[2021-06-20] MEDS: NOREPINEPHRIN 4MG/NS 250ML 250 ML IV SCH (13:34)
[2021-06-21] VITALS (20 sets, daily range): BP systolic 96–133; BP diastolic 36–63
[2021-06-21 06:20] LABS: BASOPHILS % (AUTO) 0.5 % (0.0-5.0); EOSINOPHILS % (AUTO) 6.9 % (0.0-8.0); LYMPHOCYTES % (AUTO) 28.2 % (21.0-51.0); MEAN CORPUSCULAR HEMOGLOBIN 31.3 pg (27.0-33.0); MEAN CORPUSCULAR HGB CONC 33.3 g/dL (32.0-36.0); MONOCYTES % (AUTO) 10.1 % (3.0-13.0); NEUTROPHILS % (AUTO) 53.8 % (40.0-77.0); PLATELET COUNT (AUTO) 107 K/uL (130-400); RED BLOOD CELL COUNT(AUTO) 2.17 MIL/uL (4.00-5.50); RED CELL DISTRIBUTION WIDTH 14.2 % (11.0-15.5); WHITE BLOOD COUNT (AUTO) 6.4 K/uL (4.8-10.8)
[2021-06-21 06:29] LABS: CREATININE 2.6 mg/dL (0.5-1.5); POTASSIUM 3.2 mmol/L (3.5-5.1)
[2021-06-21 06:39] LABS: HEMATOCRIT 20.4 % (36-48)
[2021-06-21] MEDS: FUROSEMIDE 40MG VIAL IV SCH (08:48)
[2021-06-21] MEDS: MIDODRINE HCL 5 MG TABLET PO SCH ×3 (08:48→20:30)
[2021-06-21] MEDS: CEFTRIAXONE 1G VIAL IVP SCH (08:48)
[2021-06-21] MEDS: PANTOPRAZOLE 40 MG TAB DR PO SCH (08:48)
[2021-06-21] MEDS ORDERED: PHARMACY COMMUNICATION MISC SCH (09:30)
[2021-06-21] MEDS ORDERED: POTASSIUM CHLORIDE 10MEQ/100ML 10 MEQ/100 ML ML IV SCH ×2 (09:30→17:00)
[2021-06-21] MEDS: POTASSIUM CHLORIDE 10MEQ/100ML 100 ML IV SCH ×4 (11:33→20:32)
[2021-06-21] MEDS: CYANOCOBALAMIN (VITAMIN B-12) 1000 MCG/ML 1ML VIAL IM SCH (11:33)
[2021-06-21] MEDS ORDERED: COMPOUND IV MISC 1 EACH IVSOLN MISC PRN (12:00)
[2021-06-21] MEDS: MAGNESIUM 2GM PREMIX 50ML 50 ML IV SCH ×2 (17:04→18:09)
[2021-06-21] MEDS: PANTOPRAZOLE 40 MG/VIAL IVP SCH (20:30)
[2021-06-21] MEDS ORDERED: PANTOPRAZOLE 40 MG TAB DR PO SCH (21:00)
[2021-06-21] MEDS ORDERED: MAGNESIUM OXIDE 400 MG TABLET PO SCH (21:00)
[2021-06-21] MEDS ORDERED: KCL 20 MEQ ERTAB PO ONE (22:34)
[2021-06-21] MEDS ORDERED: KCL 20 MEQ ERTAB PO STA (22:40)
[2021-06-22] VITALS (23 sets, daily range): BP systolic 102–143; BP diastolic 40–67
[2021-06-22 04:26] LABS: MEAN CORPUSCULAR HEMOGLOBIN 31.6 pg (27.0-33.0); MEAN CORPUSCULAR HGB CONC 32.7 g/dL (32.0-36.0); MEAN CORPUSCULAR VOLUME 96.7 fL (79-99); RED BLOOD CELL COUNT(AUTO) 2.12 MIL/uL (4.00-5.50); RED CELL DISTRIBUTION WIDTH 14.7 % (11.0-15.5); WHITE BLOOD COUNT (AUTO) 7.3 K/uL (4.8-10.8)
[2021-06-22] MEDS: GUAIFENESIN 600 MG TABLET.ER PO PRN (04:27)
[2021-06-22 04:31] LABS: CREATININE 2.7 mg/dL (0.5-1.5); HEMATOCRIT 20.5 % (36-48); POTASSIUM 3.1 mmol/L (3.5-5.1)
[2021-06-22 05:07] LABS: INR 1.33 (0.85-1.15); PROTHROMBIN TIME 14.1 SEC (9.6-11.6)
[2021-06-22] MEDS ORDERED: POTASSIUM CHLORIDE 10MEQ/100ML 10 MEQ/100 ML ML IV SCH ×2 (08:00→11:00)
[2021-06-22] MEDS: CEFTRIAXONE 1G VIAL IVP SCH (08:28)
[2021-06-22] MEDS: PANTOPRAZOLE 40 MG/VIAL IVP SCH ×2 (08:28→20:50)
[2021-06-22] MEDS: CYANOCOBALAMIN (VITAMIN B-12) 1000 MCG/ML 1ML VIAL IM SCH (08:29)
[2021-06-22] MEDS: IRON SUCROSE COMPLEX 100 MG in 0.9%NACL 50ML 50 ML IV SCH (08:29)
[2021-06-22] MEDS: MIDODRINE HCL 5 MG TABLET PO SCH ×3 (08:29→20:50)
[2021-06-22] MEDS ORDERED: FOLIC ACID 5 MG/ML VIAL IV SCH (09:00)
[2021-06-22] MEDS ORDERED: FOLIC ACID 1 MG TABLET PO SCH (09:54)
[2021-06-22] MEDS: POTASSIUM CHLORIDE 10MEQ/100ML 100 ML IV SCH ×2 (09:56→11:32)
[2021-06-22] MEDS ORDERED: PHARMACY COMMUNICATION MISC SCH (10:30)
[2021-06-22] MEDS ORDERED: PROPOFOL 10 MG/ML 20ML VIAL IV ONE (11:02)
[2021-06-22] MEDS ORDERED: GLYCOPYRROLATE 1 MG/5 ML SYRINGE ONE (11:04)
[2021-06-22] MEDS: INSULIN HUMULIN R 100 UNIT/ML 3ML SQ SCH ×3 (11:30→20:50)
[2021-06-22] MEDS ORDERED: LACTULOSE 20 GM/30 ML UDCUP PO SCH ×2 (12:00→14:00)
[2021-06-22] MEDS ORDERED: POTASSIUM CHLORIDE 10MEQ/100ML 100 ML IV SCH (12:00)
[2021-06-22] MEDS: KCL 20 MEQ ERTAB PO SCH (12:29)
[2021-06-22] MEDS: EPOETIN ALFA-EPBX (NON-ESRD) 10,000 UNIT/ML VIAL SQ SCH (13:26)
[2021-06-22] MEDS ORDERED: PEG 3350/NA SULF,BICARB,CL/KCL 4000 ML SOLN PO SCH (15:00)
[2021-06-22] MEDS ORDERED: BISACODYL 5 MG TABLET.DR PO SCH (19:00)
[2021-06-22] MEDS: INSULIN GLARGINE 100 UNITS/ML 10 ML VIAL SQ SCH (21:17)
[2021-06-23] VITALS (12 sets, daily range): BP systolic 75–134; BP diastolic 35–72
[2021-06-23 04:02] LABS: BASOPHILS % (AUTO) 0.5 % (0.0-5.0); EOSINOPHILS % (AUTO) 6.9 % (0.0-8.0); LYMPHOCYTES % (AUTO) 24.4 % (21.0-51.0); MEAN CORPUSCULAR HEMOGLOBIN 31.4 pg (27.0-33.0); MEAN CORPUSCULAR HGB CONC 33.5 g/dL (32.0-36.0); MEAN CORPUSCULAR VOLUME 93.7 fL (79-99); MONOCYTES % (AUTO) 7.9 % (3.0-13.0); NEUTROPHILS % (AUTO) 59.7 % (40.0-77.0); PLATELET COUNT (AUTO) 121 K/uL (130-400); RED BLOOD CELL COUNT(AUTO) 2.23 MIL/uL (4.00-5.50); RED CELL DISTRIBUTION WIDTH 14.5 % (11.0-15.5); WHITE BLOOD COUNT (AUTO) 8.7 K/uL (4.8-10.8)
[2021-06-23 04:19] LABS: HEMATOCRIT 20.9 % (36-48)
[2021-06-23 04:21] LABS: ALBUMIN 1.3 g/dL (3.5-5.0); BILIRUBIN,TOTAL 0.4 mg/dL (0.2-1.0); CREATININE 2.7 mg/dL (0.5-1.5); POTASSIUM 3.4 mmol/L (3.5-5.1); TOTAL PROTEIN, SERUM 5.4 g/dL (6.0-8.3)
[2021-06-23] MEDS: INSULIN HUMULIN R 100 UNIT/ML 3ML SQ SCH ×4 (06:03→21:00)
[2021-06-23] MEDS: DEXTROSE 5%-WATER 1,000 ML IV SCH (07:30)
[2021-06-23] MEDS ORDERED: 0.9%NACL 50ML 50 ML IV ONE ×2 (08:57→09:37)
[2021-06-23] MEDS ORDERED: FOLIC ACID 5 MG/ML VIAL IV SCH (09:00)
[2021-06-23] MEDS: PANTOPRAZOLE 40 MG/VIAL IVP SCH ×2 (09:07→21:37)
[2021-06-23] MEDS: CEFTRIAXONE 1G VIAL IVP SCH (09:08)
[2021-06-23] MEDS: KCL 20 MEQ ERTAB PO SCH (09:08)
[2021-06-23] MEDS: IRON SUCROSE COMPLEX 100 MG in 0.9%NACL 50ML 50 ML IV SCH (09:10)
[2021-06-23] MEDS: MIDODRINE HCL 5 MG TABLET PO SCH ×3 (09:49→21:38)
[2021-06-23] MEDS: CYANOCOBALAMIN (VITAMIN B-12) 1000 MCG/ML 1ML VIAL IM SCH (09:50)
[2021-06-23] MEDS ORDERED: PROPOFOL 10 MG/ML 20ML VIAL IV ONE (13:24)
[2021-06-23] MEDS ORDERED: GLYCOPYRROLATE 1 MG/5 ML SYRINGE ONE (13:28)
[2021-06-23] MEDS: GUAIFENESIN 600 MG TABLET.ER PO PRN (16:08)
[2021-06-23] MEDS: INSULIN GLARGINE 100 UNITS/ML 10 ML VIAL SQ SCH (21:40)
[2021-06-24] MEDS: DEXTROSE 5%-WATER 1,000 ML IV SCH (03:36)
[2021-06-24 04:00] VITALS: BP 107/50
[2021-06-24] MEDS: INSULIN HUMULIN R 100 UNIT/ML 3ML SQ SCH ×4 (06:44→20:50)
[2021-06-24 07:10] LABS: BASOPHILS % (AUTO) 0.6 % (0.0-5.0); EOSINOPHILS % (AUTO) 5.7 % (0.0-8.0); HEMATOCRIT 21.9 % (36-48); LYMPHOCYTES % (AUTO) 24.4 % (21.0-51.0); MEAN CORPUSCULAR HEMOGLOBIN 32.4 pg (27.0-33.0); MEAN CORPUSCULAR HGB CONC 32.9 g/dL (32.0-36.0); MEAN CORPUSCULAR VOLUME 98.6 fL (79-99); MONOCYTES % (AUTO) 7.1 % (3.0-13.0); NEUTROPHILS % (AUTO) 61.6 % (40.0-77.0); NUCLEATED RED BLOOD CELLS 0.3 % (0.0-0.19); PLATELET COUNT (AUTO) 131 K/uL (130-400); RED BLOOD CELL COUNT(AUTO) 2.22 MIL/uL (4.00-5.50); RED CELL DISTRIBUTION WIDTH 15.5 % (11.0-15.5); WHITE BLOOD COUNT (AUTO) 11.8 K/uL (4.8-10.8)
[2021-06-24 07:24] LABS: CREATININE 2.6 mg/dL (0.5-1.5); POTASSIUM 3.6 mmol/L (3.5-5.1)
[2021-06-24 08:13] VITALS: BP 108/51
[2021-06-24] MEDS: KCL 20 MEQ ERTAB PO SCH (08:29)
[2021-06-24] MEDS: PANTOPRAZOLE 40 MG/VIAL IVP SCH ×2 (08:29→20:38)
[2021-06-24] MEDS: CEFTRIAXONE 1G VIAL IVP SCH (08:29)
[2021-06-24] MEDS: IRON SUCROSE COMPLEX 100 MG in 0.9%NACL 50ML 50 ML IV SCH (08:30)
[2021-06-24] MEDS: FOLIC ACID 1 MG TABLET PO SCH (08:31)
[2021-06-24] MEDS: MIDODRINE HCL 5 MG TABLET PO SCH ×3 (09:00→20:38)
[2021-06-24] MEDS ORDERED: EPHEDRINE SULFATE 50 MG/ML AMPULE ONE (09:43)
[2021-06-24] MEDS ORDERED: PROPOFOL 10 MG/ML 20ML VIAL IV ONE (09:43)
[2021-06-24] MEDS: CYANOCOBALAMIN (VITAMIN B-12) 1000 MCG/ML 1ML VIAL IM SCH (09:49)
[2021-06-24 16:44] VITALS: BP 113/39
[2021-06-24 20:30] VITALS: BP 123/51
[2021-06-24] MEDS: INSULIN GLARGINE 100 UNITS/ML 10 ML VIAL SQ SCH (21:33)
[2021-06-24 23:37] VITALS: BP 104/43
[2021-06-25 04:30] VITALS: BP 104/49
[2021-06-25] MEDS: INSULIN HUMULIN R 100 UNIT/ML 3ML SQ SCH ×4 (06:13→21:26)
[2021-06-25 06:20] LABS: BASOPHILS % (AUTO) 0.6 % (0.0-5.0); EOSINOPHILS % (AUTO) 7.7 % (0.0-8.0); HEMATOCRIT 22.5 % (36-48); LYMPHOCYTES % (AUTO) 25.1 % (21.0-51.0); MEAN CORPUSCULAR HEMOGLOBIN 32.2 pg (27.0-33.0); MEAN CORPUSCULAR HGB CONC 32.4 g/dL (32.0-36.0); MEAN CORPUSCULAR VOLUME 99.1 fL (79-99); NEUTROPHILS % (AUTO) 59.1 % (40.0-77.0); NUCLEATED RED BLOOD CELLS 0.3 % (0.0-0.19); PLATELET COUNT (AUTO) 92 K/uL (130-400); RED BLOOD CELL COUNT(AUTO) 2.27 MIL/uL (4.00-5.50); RED CELL DISTRIBUTION WIDTH 15.9 % (11.0-15.5); WHITE BLOOD COUNT (AUTO) 10.1 K/uL (4.8-10.8)
[2021-06-25 07:00] VITALS: BP 108/68
[2021-06-25 11:00] VITALS: BP 91/34
[2021-06-25] MEDS: CEFTRIAXONE 1G VIAL IVP SCH (13:41)
[2021-06-25] MEDS: CYANOCOBALAMIN (VITAMIN B-12) 1000 MCG/ML 1ML VIAL IM SCH (13:42)
[2021-06-25] MEDS: MIDODRINE HCL 5 MG TABLET PO SCH ×3 (13:42→21:23)
[2021-06-25] MEDS: PANTOPRAZOLE 40 MG/VIAL IVP SCH ×2 (13:42→21:23)
[2021-06-25] MEDS: FOLIC ACID 1 MG TABLET PO SCH (13:42)
[2021-06-25] MEDS: EPOETIN ALFA-EPBX (NON-ESRD) 10,000 UNIT/ML VIAL SQ SCH (13:45)
[2021-06-25 16:00] VITALS: BP 105/52
[2021-06-25 16:56] LABS: INR 1.42 (0.85-1.15)
[2021-06-25 17:58] LABS: ALBUMIN 1.5 g/dL (3.5-5.0); CREATININE 2.7 mg/dL (0.5-1.5); PHOSPHORUS 3.8 mg/dL (2.5-4.9)
[2021-06-25 20:00] VITALS: BP 127/55
[2021-06-25] MEDS: GUAIFENESIN 600 MG TABLET.ER PO PRN (21:32)
[2021-06-25] MEDS: BENZOCAINE/MENTH/CETYLPYRD CL 1 EACH LOZENGE MM PRN (21:32)
[2021-06-25 23:57] VITALS: BP 104/36
[2021-06-26 03:55] VITALS: BP 118/55
[2021-06-26] MEDS: GUAIFENESIN 600 MG TABLET.ER PO PRN ×2 (05:01→14:12)
[2021-06-26] MEDS: INSULIN HUMULIN R 100 UNIT/ML 3ML SQ SCH ×3 (05:58→17:13)
[2021-06-26 07:30] VITALS: BP 111/51
[2021-06-26] MEDS: CEFTRIAXONE 1G VIAL IVP SCH (08:30)
[2021-06-26] MEDS: CYANOCOBALAMIN (VITAMIN B-12) 1000 MCG/ML 1ML VIAL IM SCH (09:00)
[2021-06-26] MEDS ORDERED: 0.9%NACL 1000ML 1,000 ML IV SCH (10:30)
[2021-06-26 11:00] VITALS: BP 112/41
[2021-06-26] MEDS: MIDODRINE HCL 5 MG TABLET PO SCH ×2 (11:07→14:12)
[2021-06-26] MEDS: FOLIC ACID 1 MG TABLET PO SCH (11:08)
[2021-06-26] MEDS: PANTOPRAZOLE 40 MG/VIAL IVP SCH (11:09)
[2021-06-26] MEDS: BENZOCAINE/MENTH/CETYLPYRD CL 1 EACH LOZENGE MM PRN (14:12)
[2021-06-26 16:00] VITALS: BP 115/55
[2021-06-27] MEDS ORDERED: IRON SUCROSE COMPLEX 500 MG in 0.9% NACL 250ML 250 ML IV SCH (09:00)
[2021-06-27] MEDS ORDERED: EPOETIN ALFA-EPBX (NON-ESRD) 10,000 UNIT/ML VIAL SQ SCH (14:00)
[2021-07-24] MEDS ORDERED: SPIR25TA PO (00:47)
[2021-07-24] MEDS ORDERED: TORS100T16 PO (00:47)
[2021-07-24] MEDS ORDERED: MIDO5TAB4 PO (00:47)
[2021-07-24] MEDS ORDERED: PANT40TA PO (00:47)
[2021-07-24] MEDS ORDERED: ACET325T51 PO (09:00)
[2021-07-24] MEDS ORDERED: GUAI100S13 PO (09:00)
[2021-07-24] MEDS ORDERED: DOCU-116 PO (09:00)
[2021-07-24] MEDS ORDERED: BENZ1LOZ83 MM (09:00)
[2021-07-24] MEDS ORDERED: FERR-72 PO (09:00)
[2021-07-24] MEDS ORDERED: INSU100I15 SQ (09:00)
[2021-07-24] MEDS ORDERED: ONDA4TAB4 PO (09:00)
== END 2021-06-26 20:00 | DRG 871 ==
LOC: EDH 19:32 → EDHIP 23:01 → 3BH 06-17 → 2DH 06-17 12:21 → 2CH 06-24 05:47 → 2DH 06-24 05:57 → 4CH 06-25 16:01
PROVIDERS: ADMIT Internal Medicine; ATTEND Internal Medicine
PROC: 02H633Z Insertion of Infusion Device into Right Atrium, Percutaneous Approach (ICD-10-PCS; principal; 2021-06-20)
PROC: B548ZZA Ultrasonography of Superior Vena Cava, Guidance (ICD-10-PCS; 2021-06-20)
PROC: 0DJ08ZZ Inspection of Upper Intestinal Tract, Via Natural or Artificial Opening Endoscopic (ICD-10-PCS; 2021-06-22)
PROC: 0DJD8ZZ Inspection of Lower Intestinal Tract, Via Natural or Artificial Opening Endoscopic (ICD-10-PCS; 2021-06-23)
PROC: 0DJD8ZZ Inspection of Lower Intestinal Tract, Via Natural or Artificial Opening Endoscopic (ICD-10-PCS; 2021-06-24)
PROC: 0DJ08ZZ Inspection of Upper Intestinal Tract, Via Natural or Artificial Opening Endoscopic (ICD-10-PCS; 2021-06-24)
DX: A41.51 Sepsis due to Escherichia coli [E. coli] (principal); R65.21 Severe sepsis with septic shock; E43 Unspecified severe protein-calorie malnutrition; N17.0 Acute kidney failure with tubular necrosis; K21.01 Gastro-esophageal reflux disease with esophagitis, with bleeding; K29.01 Acute gastritis with bleeding; K57.31 Diverticulosis of large intestine without perforation or abscess with bleeding; G92.8 Other toxic encephalopathy; N30.00 Acute cystitis without hematuria; E87.0 Hyperosmolality and hypernatremia; R45.851 Suicidal ideations; D62 Acute posthemorrhagic anemia; R29.6 Repeated falls; D69.6 Thrombocytopenia, unspecified; E11.65 Type 2 diabetes mellitus with hyperglycemia; E78.5 Hyperlipidemia, unspecified; F02.80 Dementia in other diseases classified elsewhere, unspecified severity, without behavioral disturbance, psychotic disturbance, mood disturbance, and anxiety; F79 Unspecified intellectual disabilities; Z20.822 Contact with and (suspected) exposure to COVID-19; Z66 Do not resuscitate; S00.83XA Contusion of other part of head, initial encounter; G25.2 Other specified forms of tremor; I10 Essential (primary) hypertension; E87.6 Hypokalemia; F32.A Depression, unspecified; F41.9 Anxiety disorder, unspecified; B96.20 Unspecified Escherichia coli [E. coli] as the cause of diseases classified elsewhere; E83.42 Hypomagnesemia; E86.9 Volume depletion, unspecified; K63.5 Polyp of colon; K64.0 First degree hemorrhoids; F03.90 Unspecified dementia, unspecified severity, without behavioral disturbance, psychotic disturbance, mood disturbance, and anxiety; M81.0 Age-related osteoporosis without current pathological fracture; R19.5 Other fecal abnormalities; Z53.1 Procedure and treatment not carried out because of patient's decision for reasons of belief and group pressure; W18.2XXA Fall in (into) shower or empty bathtub, initial encounter; Y92.89 Other specified places as the place of occurrence of the external cause; Y99.8 Other external cause status; Z74.01 Bed confinement status; Z91.81 History of falling; Y93.E1 Activity, personal bathing and showering; Z81.0 Family history of intellectual disabilities; Z82.0 Family history of epilepsy and other diseases of the nervous system; Z82.3 Family history of stroke; Z82.5 Family history of asthma and other chronic lower respiratory diseases; Z82.62 Family history of osteoporosis; Z83.3 Family history of diabetes mellitus; Z80.9 Family history of malignant neoplasm, unspecified; Z82.49 Family history of ischemic heart disease and other diseases of the circulatory system
CPT/HCPCS: 36415; 43235; 44360; 45378; 70450; 71045; 73030; 76705; 76770; 80048; 80053; 80069; 80076; 81001; 82140; 82270; 82728; 82948; 83036; 83540; 83550; 83605; 83735; 84100; 84134; 84145; 84425; 84484; 85025; 85027; 85045; 85610; 85730; 86677; 86850; 86900; 86901; 87040; 87077; 87088; 87186; 87635; 92610; 93005; 93306; 93356; 93970; 97039; A4606; C1894; C9113; C9803; G0378; J0696; J1644; J1756; J1815; J1940; J2405; J2543; J2704; J3420; J3475; J3490; J7030; J7040; J7050; J7070; J7120

== ENCOUNTER 2021-07-06 16:52 | Emergency (ER) | payer MEDICARE ==
[~2021-07-06] VITALS: Ht 160 cm; Wt 63.6 kg
[2021-07-06 18:08] LABS: BASOPHILS % (AUTO) 1.2 % (0.0-5.0); EOSINOPHILS % (AUTO) 11.9 % (0.0-8.0); HEMATOCRIT 23.3 % (36-48); LYMPHOCYTES % (AUTO) 27.5 % (21.0-51.0); MEAN CORPUSCULAR HEMOGLOBIN 30.7 pg (27.0-33.0); MEAN CORPUSCULAR HGB CONC 31.8 g/dL (32.0-36.0); MEAN CORPUSCULAR VOLUME 96.7 fL (79-99); MONOCYTES % (AUTO) 10.4 % (3.0-13.0); NEUTROPHILS % (AUTO) 48.8 % (40.0-77.0); PLATELET COUNT (AUTO) 66 K/uL (130-400); RED BLOOD CELL COUNT(AUTO) 2.41 MIL/uL (4.00-5.50); RED CELL DISTRIBUTION WIDTH 15.8 % (11.0-15.5)
[2021-07-06 18:11] LABS: APPEARANCE,URINE Turbid (CLEAR); BILIRUBIN,URINE Negative (NEGATIVE); COLOR,URINE Orange (YELLOW); GLUCOSE, URINE (UA) Negative (NEGATIVE); KETONES,URINE Negative (NEGATIVE); LEUKOCYTE ESTERASE ,URINE Large (NEGATIVE); NITRATE,URINE Negative (NEGATIVE); OCCULT BLOOD,URINE Large (NEGATIVE); PH,URINE 5.5 (5.0-8.0); PROTEIN,URINE 300 mg/dL (NEGATIVE); UROBILINOGEN,URINE 0.2 mg/dL (0.2-1.0)
[2021-07-06 18:28] LABS: B-TYPE NATRIURETIC PEPTIDE 215 pg/mL (0-100)
[2021-07-06 18:32] LABS: YEAST,URINE BUDDING Many /HPF (None Seen)
[2021-07-06 18:33] LABS: BACTERIA,URINE Few /HPF (None Seen); RBC,URINE 51-100 /HPF (0-1); WBC,URINE >100 /HPF (0-1)
[2021-07-06 18:34] LABS: SQUAMOUS EPITHELIAL CELL,UR None Seen /HPF (0-2)
[2021-07-06 18:55] LABS: CREATININE 2.5 mg/dL (0.5-1.5); POTASSIUM 4.7 mmol/L (3.5-5.1)
[2021-07-06] MEDS ORDERED: ZOSYN 3.375GM +NS 50ML IV SCH (19:00)
[2021-07-06] MEDS ORDERED: FLUCONAZOLE 100 MG TAB PO ONE (19:00)
[2021-07-06 19:05] LABS: ALBUMIN 1.5 g/dL (3.5-5.0); BILIRUBIN,TOTAL 0.3 mg/dL (0.2-1.0); CRP QUANTITATIVE 14.5 mg/L (0.00-9.0); TOTAL PROTEIN, SERUM 6.5 g/dL (6.0-8.3)
[2021-07-06] MEDS ORDERED: LEVO500T90 PO (19:13)
[2021-07-06] MEDS ORDERED: FLUC150T PO (19:13)
[2021-07-06 20:36] VITALS: BP 143/51
== END 2021-07-06 21:43 | disposition home or self-care (01) ==
LOC: EDH 16:52
DX: N39.0 Urinary tract infection, site not specified (principal); I12.0 Hypertensive chronic kidney disease with stage 5 chronic kidney disease or end stage renal disease; E11.22 Type 2 diabetes mellitus with diabetic chronic kidney disease; D63.1 Anemia in chronic kidney disease; N18.6 End stage renal disease; R60.9 Edema, unspecified; B37.9 Candidiasis, unspecified; Z99.2 Dependence on renal dialysis; E78.00 Pure hypercholesterolemia, unspecified; F41.9 Anxiety disorder, unspecified; F32.A Depression, unspecified
CPT/HCPCS: 36415; 71045; 80053; 81001; 83880; 84484; 85025; 86140; 87040 ×2; 87088; 93005; 96365; 99285; J2543

== ENCOUNTER 2021-07-16 10:26 | Emergency (ER) | payer MEDICARE ==
[~2021-07-16] VITALS: Ht 157.5 cm; Wt 56.7 kg
[~2021-07-16 10:26] MED LIST changes: -ALEN70TA80 PO; -BUSP5TAB3 PO; -CHOL200026 PO; -ESOM40CA54 PO; -FERS325 PO; +FLUC150T PO; -FLUT15.845 NS; -FOLI1 PO; -INSU100I24 SQ; -INSU200I SQ; +LEVO500T90 PO; -LISI5TAB21 PO; -METF-446 PO; -METO-408 PO; -PIOG15TA66 PO; -ROSU20TA31 PO; -SERT25TA PO; -SULF1TAB42 PO; -VITA1CAP85 PO
[2021-07-16 12:58] LABS: BASOPHILS % (AUTO) 1.4 % (0.0-5.0); EOSINOPHILS % (AUTO) 7.5 % (0.0-8.0); LYMPHOCYTES % (AUTO) 26.1 % (21.0-51.0); MEAN CORPUSCULAR HEMOGLOBIN 31.2 pg (27.0-33.0); MEAN CORPUSCULAR HGB CONC 34.4 g/dL (32.0-36.0); MEAN CORPUSCULAR VOLUME 90.6 fL (79-99); MONOCYTES % (AUTO) 13.1 % (3.0-13.0); NEUTROPHILS % (AUTO) 51.7 % (40.0-77.0); PLATELET COUNT (AUTO) 122 K/uL (130-400); RED BLOOD CELL COUNT(AUTO) 2.76 MIL/uL (4.00-5.50); RED CELL DISTRIBUTION WIDTH 15.8 % (11.0-15.5); WHITE BLOOD COUNT (AUTO) 5.6 K/uL (4.8-10.8)
[2021-07-16 13:28] VITALS: BP 136/88
[2021-07-24] MEDS ORDERED: MIDO5TAB4 PO (00:47)
[2021-07-24] MEDS ORDERED: SPIR25TA PO (00:47)
[2021-07-24] MEDS ORDERED: PANT40TA PO (00:47)
[2021-07-24] MEDS ORDERED: TORS100T16 PO (00:47)
[2021-07-24] MEDS ORDERED: ONDA4TAB4 PO (09:00)
[2021-07-24] MEDS ORDERED: DOCU-116 PO (09:00)
[2021-07-24] MEDS ORDERED: BENZ1LOZ83 MM (09:00)
[2021-07-24] MEDS ORDERED: GUAI100S13 PO (09:00)
[2021-07-24] MEDS ORDERED: ACET325T51 PO (09:00)
[2021-07-24] MEDS ORDERED: FERR-72 PO (09:00)
[2021-07-24] MEDS ORDERED: INSU100I15 SQ (09:00)
== END 2021-07-16 13:30 | disposition home or self-care (01) ==
LOC: EDH 10:26
DX: L98.8 Other specified disorders of the skin and subcutaneous tissue (principal); N18.6 End stage renal disease; D63.1 Anemia in chronic kidney disease
CPT/HCPCS: 36415; 85025